=== PATIENT | male | born 1995 | race African-American/Black ===

== ENCOUNTER 2019-02-27 08:32 | Inpatient (IN) | payer OTHER, SELFPAY ==
[2019-02-27] MEDS ORDERED: Ketorolac Tromethamine 30 MG/ML VIAL ONE (08:51)
[2019-02-27 09:20] LABS: PTT 28.5 SEC (22.9-36.1); Prothrombin Time 13.6 SEC (12.0-14.7)
[2019-02-27 09:27] LABS: Anion Gap 17 mmol/L (10-20); BUN (Urea Nitrogen) 7 mg/dL (8.9-20.6); Calc. Creatinine Clearance 0 mL/min (70-130); Calcium 9.9 mg/dL (7.8-10.44); Carbon Dioxide 24 mmol/L (22-29); Chloride 108 mmol/L (98-107); Estimated GFR-MDRD Greater than 90; Glucose 70 mg/dL (70-105); Potassium 4.1 mmol/L (3.5-5.1); Sodium 145 mmol/L (136-145)
[2019-02-27 09:32] LABS: #Basophils 0.1 thou/uL (0.0-0.2); #Lymphocytes 2.3 thou/uL (1.20-3.40); #Monocytes 0.7 thou/uL (0.11-0.59); #Neutrophils 7.7 thou/uL (1.40-6.50); %Basophils 1.1 % (0.0-1.0); %Eosinophils 0.4 % (0.0-10.0); %Lymphocytes 21.2 % (21.0-51.0); %Monocytes 6.1 % (0.0-10.0); %Neutrophils 71.1 % (42.0-75.0); Hemoglobin 15.2 g/dL (14.0-18.0); Mean Corpuscular HGB CONC 33.7 g/dL (32.0-36.0); Mean Corpuscular Hemoglobin 30.8 pg (27.0-31.0); Mean Corpuscular Volume 91.5 fL (78.0-98.0); Mean Platelet Volume 13.7 fL (7.4-10.4); Platelet Count 172 thou/uL (130-400); Red Blood Cell (RBC) Count 4.91 mill/uL (4.70-6.10); White Blood Cell (WBC) Count 10.8 thou/uL (4.8-10.8)
[2019-02-27 09:33] LABS: Large Platelets SLIGHT; MDiff Complete? YES; Platelet Morphology Comment Appears Adequate; RBC Morphology Normal
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
[2019-02-27] MEDS ORDERED: Adacel (T-DAP) 0.5 ML SYRINGE ONE (09:42)
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
[2019-02-27] MEDS ORDERED: Clindamycin/D5W 900 mg/50 ml Premix Bag ONE (10:15)
[2019-02-27 12:20] VITALS: BMI 24.8
[2019-02-27] MEDS ORDERED: Ondansetron PF 4 MG/2 ML Vial IVP PRN (12:38)
[2019-02-27] MEDS ORDERED: hydrALAZINE 20 MG/ML VIAL SLOW IVP PRN (12:38)
[2019-02-27] MEDS ORDERED: Dextrose 5% in Water 1,000 ML IV PRN (12:38)
[2019-02-27] MEDS ORDERED: Dextrose 50% Abboject 50 ML SYRINGE SLOW IVP PRN (12:38)
[2019-02-27] MEDS ORDERED: traMADol HCl 50 MG TAB PO PRN (12:42)
[2019-02-27] MEDS ORDERED: Promethazine HCl 25 MG/ML VIAL SLOW IVP PRN (12:48)
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
[2019-02-27] MEDS: Acetaminophen 500 MG TAB PO SCH ×3 (13:42→22:44)
[2019-02-27] MEDS: Sodium Chloride 0.9% 1,000 ML IV SCH ×2 (13:44→21:11)
[2019-02-27] MEDS: Oxazepam 10 MG CAP PO SCH ×2 (13:48→22:44)
[2019-02-27] MEDS: Ibuprofen 800 MG TAB PO SCH ×2 (13:48→21:05)
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
[2019-02-27] MEDS: Clindamycin/D5W 600 MG in Premix Bag 1 BAG IVPB SCH (18:15)
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
[2019-02-27] MEDS: Chlorhexidine Gluconate 15 ML UDCUP SSP SCH (21:04)
[2019-02-27] MEDS: Famotidine/PF 20 mg/2ml Vial SLOW IVP SCH (21:04)
[2019-02-27] MEDS: Senokot S 8.6-50 MG TAB PO SCH (21:04)
[2019-02-27 22:55] LABS: Cocaine Metabolite Screen Detected (NotDetected); Medtox Reader # READER 1; THC/Cannabinoid Screen Detected (NotDetected)
[2019-02-27 22:56] LABS: Amphetamine Not Detected (NotDetected); Barbiturates Screen Not Detected (NotDetected); Benzodiazepine Screen Detected (NotDetected); Medtox Control Line Valid? VALID (VALID); Methadone Not Detected (NotDetected); Methamphetamine Not Detected (NotDetected); Opiate Screen Not Detected (NotDetected); Oxycodone Screen Not Detected (NotDetected); Phencyclidine (PCP) Not Detected (NotDetected); Tricyclic Screen Not Detected (NotDetected)
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
[2019-02-28] MEDS: Clindamycin/D5W 600 MG in Premix Bag 1 BAG IVPB SCH ×3 (01:53→18:00)
[2019-02-28] MEDS: Sodium Chloride 0.9% 1,000 ML IV SCH ×2 (01:56→13:56)
[2019-02-28] MEDS: Acetaminophen 500 MG TAB PO SCH ×5 (04:52→22:56)
[2019-02-28] MEDS: Ibuprofen 800 MG TAB PO SCH ×3 (04:53→22:56)
[2019-02-28] MEDS: Oxazepam 10 MG CAP PO SCH ×3 (04:53→22:56)
[2019-02-28] MEDS: Morphine 2 MG/ML SYRINGE SLOW IVP PRN ×2 (05:36→09:04)
[2019-02-28 06:23] LABS: #Eosinphils 0.2 thou/uL (0.0-0.7); #Lymphocytes 2.3 thou/uL (1.20-3.40); #Monocytes 0.8 thou/uL (0.11-0.59); #Neutrophils 4.8 thou/uL (1.40-6.50); %Basophils 0.4 % (0.0-1.0); %Eosinophils 2.5 % (0.0-10.0); %Lymphocytes 28.3 % (21.0-51.0); %Monocytes 9.8 % (0.0-10.0); Hemoglobin 13.2 g/dL (14.0-18.0); Mean Corpuscular HGB CONC 33.8 g/dL (32.0-36.0); Mean Corpuscular Hemoglobin 31.9 pg (27.0-31.0); Mean Corpuscular Volume 94.4 fL (78.0-98.0); Mean Platelet Volume 11.3 fL (7.4-10.4); Platelet Count 131 thou/uL (130-400); RBC Distribution Width 12.2 % (11.5-14.5); Red Blood Cell (RBC) Count 4.14 mill/uL (4.70-6.10); White Blood Cell (WBC) Count 8.1 thou/uL (4.8-10.8)
[2019-02-28 06:41] LABS: Anion Gap 13 mmol/L (10-20); BUN (Urea Nitrogen) 8 mg/dL (8.9-20.6); Calc. Creatinine Clearance 124 mL/min (70-130); Calcium 8.8 mg/dL (7.8-10.44); Carbon Dioxide 21 mmol/L (22-29); Chloride 107 mmol/L (98-107); Estimated GFR-MDRD Greater than 90; Glucose 79 mg/dL (70-105); Magnesium 1.8 mg/dL (1.6-2.6); Phosphorus 2.9 mg/dL (2.3-4.7); Potassium 3.6 mmol/L (3.5-5.1); Sodium 137 mmol/L (136-145)
[2019-02-28] MEDS ORDERED: Magnesium 2 GM/50 ML 2 GM in Premix Bag 1 BAG IVPB SCH (07:45)
[2019-02-28] MEDS ORDERED: Potassium Phosphate 15 MMOL in Sodium Chloride 0.9% 100 ML IVPB SCH (07:45)
[2019-02-28] MEDS ORDERED: FLU VACC QS2019-20(6MOS UP)/PF 60 MCG/0.5 ML SYRINGE IM ONE (09:00)
[2019-02-28] MEDS: Senokot S 8.6-50 MG TAB PO SCH ×2 (09:04→20:09)
[2019-02-28] MEDS: Polyethylene Glycol 3350 17 GM Packet PO SCH (09:08)
[2019-02-28] MEDS: Famotidine/PF 20 mg/2ml Vial SLOW IVP SCH (09:09)
[2019-02-28] MEDS: Chlorhexidine Gluconate 15 ML UDCUP SSP SCH ×2 (09:10→20:07)
[2019-02-28] MEDS ORDERED: PROPOFOL 200 MG/20 ML VIAL ONE (11:28)
[2019-02-28] MEDS ORDERED: Esmolol 100 MG/10 ML VIAL ONE (11:28)
[2019-02-28] MEDS ORDERED: Ondansetron PF 4 MG/2 ML Vial ONE (11:28)
[2019-02-28] MEDS ORDERED: Ketorolac Tromethamine 30 MG/ML VIAL ONE (11:28)
[2019-02-28] MEDS ORDERED: PHENYLEPHRINE-NS 100 MCG/ML 10 ML SYRINGE ONE (11:28)
[2019-02-28] MEDS ORDERED: Dexamethasone 20 MG/5 ML VIAL ONE (11:28)
[2019-02-28] MEDS ORDERED: Rocuronium Bromide 10 MG/ML (10ML VIAL) ONE (11:28)
[2019-02-28] MEDS ORDERED: Lidocaine 1% PF 5 ML VIAL ONE (11:28)
[2019-02-28] MEDS ORDERED: Labetalol HCl 100 MG/20 ML VIAL ONE (11:55)
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
[2019-02-28] MEDS ORDERED: Fentanyl 100 MCG/2 ML VIAL ONE ×3 (13:55→17:49)
[2019-02-28] MEDS ORDERED: Lidocaine 2% Jelly 5 ML TUBE ONE (13:55)
[2019-02-28] MEDS ORDERED: Oxymetazoline HCl 0.05% ( 15 ML ) ONE (14:01)
[2019-02-28] MEDS ORDERED: Bupivacaine HCl 0.5%/Epinephrine 1:200,000/PF 30 ml Vial ONE (14:26)
[2019-02-28] MEDS ORDERED: Chlorhexidine Gluconate 15 ML UDCUP SSP ONE (14:26)
[2019-02-28] MEDS ORDERED: Ondansetron HCl/PF 4 MG/2 ML Vial IVP PRN (17:12)
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
[2019-02-28] MEDS ORDERED: Ondansetron ODT 4 MG TAB PO PRN (19:54)
[2019-02-28] MEDS: traMADol HCl 50 MG TAB PO PRN (20:08)
[2019-02-28] MEDS: Clindamycin 150 MG CAP PO SCH (20:08)
[2019-02-28] MEDS: Famotidine 20 MG TAB PO SCH (20:09)
[2019-02-28] MEDS: Cyclobenzaprine 10 MG TAB PO PRN (20:10)
[2019-03-01] MEDS: traMADol HCl 50 MG TAB PO PRN (01:12)
[2019-03-01 05:20] LABS: Anion Gap 12 mmol/L (10-20); BUN (Urea Nitrogen) 6 mg/dL (8.9-20.6); Calc. Creatinine Clearance 131 mL/min (70-130); Calcium 9.1 mg/dL (7.8-10.44); Carbon Dioxide 25 mmol/L (22-29); Chloride 105 mmol/L (98-107); Estimated GFR-MDRD Greater than 90; Glucose 107 mg/dL (70-105); Magnesium 2.1 mg/dL (1.6-2.6); Phosphorus 3.5 mg/dL (2.3-4.7); Potassium 3.7 mmol/L (3.5-5.1); Sodium 138 mmol/L (136-145)
[2019-03-01 05:51] LABS: Band 7 % (5-11); Hemoglobin 13.2 g/dL (14.0-18.0); Lymphocytes 7 % (21-51); MDiff Complete? YES; Mean Corpuscular Hemoglobin 31.4 pg (27.0-31.0); Mean Corpuscular Volume 92.4 fL (78.0-98.0); Mean Platelet Volume 11.1 fL (7.4-10.4); Monocytes 3 % (0-10); Neutrophil 83 % (42-75); Platelet Count 136 thou/uL (130-400); Red Blood Cell (RBC) Count 4.19 mill/uL (4.70-6.10); White Blood Cell (WBC) Count 14.4 thou/uL (4.8-10.8)
[2019-03-01] MEDS: Ibuprofen 800 MG TAB PO SCH (06:25)
[2019-03-01] MEDS: Oxazepam 10 MG CAP PO SCH (06:25)
[2019-03-01] MEDS: Acetaminophen 500 MG TAB PO SCH (06:25)
[2019-03-01] MEDS ORDERED: Enoxaparin Sodium 40 MG/0.4 ML SYRINGE SC SCH (09:00)
[2019-03-01] MEDS: Cyclobenzaprine 10 MG TAB PO PRN (09:07)
[2019-03-01] MEDS: Famotidine 20 MG TAB PO SCH (09:07)
[2019-03-01] MEDS: Clindamycin 150 MG CAP PO SCH (09:07)
[2019-03-01] MEDS: Senokot S 8.6-50 MG TAB PO SCH (09:12)
[2019-03-01] MEDS: Chlorhexidine Gluconate 15 ML UDCUP SSP SCH (09:12)
[2019-03-01] MEDS: Polyethylene Glycol 3350 17 GM Packet PO SCH (09:13)
[2019-03-01] MEDS ORDERED: Ibuprofen 100 MG/5 ML UDCUP PO PRN (10:06)
[2019-03-01 11:18] VITALS: BP 151/101; TEMP 97.8
[2019-03-01] MEDS ORDERED: Acetaminophen 650 MG/20.3 ML UDCUP PO SCH (12:00)
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
== END 2019-03-01 13:08 | disposition home or self-care (01) | DRG 132 ==
LOC: SCSER 08:32 → SURG A 10:05
PROVIDERS: ADMIT Surgery; ATTEND Surgery
PROC: 0NSV04Z Reposition Left Mandible with Internal Fixation Device, Open Approach (ICD-10-PCS; principal; 2019-02-28)
PROC: 0NST04Z Reposition Right Mandible with Internal Fixation Device, Open Approach (ICD-10-PCS; 2019-02-28)
DX: S02.601A Fracture of unspecified part of body of right mandible, initial encounter for closed fracture (principal); S02.652A Fracture of angle of left mandible, initial encounter for closed fracture; F41.9 Anxiety disorder, unspecified; I10 Essential (primary) hypertension; F12.10 Cannabis abuse, uncomplicated; F19.10 Other psychoactive substance abuse, uncomplicated; F17.210 Nicotine dependence, cigarettes, uncomplicated; R40.2412 Glasgow coma scale score 13-15, at arrival to emergency department; F31.9 Bipolar disorder, unspecified; E87.6 Hypokalemia; E83.39 Other disorders of phosphorus metabolism; E83.42 Hypomagnesemia; W18.39XA Other fall on same level, initial encounter; Y08.89XA Assault by other specified means, initial encounter
CPT/HCPCS: 36415; 70450; 70486; 72125; 80048; 80306; 80307; 83735; 84100; 85025; 85610; 85730; 90715; C1713; J0360; J0670; J1100; J1650; J1885; J2001; J2270; J2405; J2704; J3010; J3475; J3490; S0028